=== PATIENT | male | born 1955 | race Caucasian/White ===

== ENCOUNTER 2019-06-04 09:14 | Emergency (ER) | payer OTHER ==
[~2019-06-04] VITALS: Ht 182.9 cm; Wt 95.7 kg
[2019-06-04 09:21] VITALS: BP 156/88
--- NOTE | 2019-06-04 09:21 | NUR ---
BIBA AND PLACED IN BED 08
--- NOTE | 2019-06-04 09:23 | NUR ---
DR GREEN EVALUATING PT AT BEDSIDE
--- NOTE | 2019-06-04 09:30 | NUR ---
PT BIBA FROM [facility]. PT STATES PAIN AT RIGHT-SIDED OCCIPITAL AREA UPON PALPATION, OTHERWISE DENIES PAIN. MOIST COUGH NOTICED UPON TRIAGE. LUNGS ARE CLEAR TO AUSCULTATION. PT IS AT BASELINE PER EMS: GCS 14, AOX3. PT IS DNR (ORIGINAL POLST IS AVAILABLE IN CHART). PATIENT STATES PAIN OF 5/10 ON PALPATION AT THE OCCIPITAL AREA OF THE HEAD AT THIS TIME; VSS; PATIENT POSITIONED FOR COMFORT; HOB ELEVATED; BEDRAILS UP X2; BED DOWN. ER MD MADE AWARE OF PT STATUS.
--- NOTE | 2019-06-04 09:48 | NUR ---
PT IS TAKING TO CT SCAN VIA GURNEY ASSISTED BY PET CARE ASSOCIATE.
[2019-06-04 09:52] LABS: BASOPHILS # (AUTO) 0.1 K/uL (0.00-0.22); BASOPHILS % (AUTO) 1.3 % (0.0-2.0); EOSINOPHILS # (AUTO) 0.4 K/uL (0-0.4); EOSINOPHILS % (AUTO) 3.9 % (0.0-4.0); HEMATOCRIT 44.3 % (36-52); HEMOGLOBIN 14.4 g/dL (12.0-18.0); LYMPHOCYTES % (AUTO) 21.5 % (20.5-51.1); MEAN CORPUSCULAR HEMOGLOBIN 29 pg (27-31); MEAN CORPUSCULAR HGB CONC 33 g/dL (33-37); MEAN CORPUSCULAR VOLUME 88.6 fL (80-94); MONOCYTES # (AUTO) 0.7 K/uL (0.8-1.0); NEUTROPHILS # (AUTO) 6.2 K/uL (1.8-7.7); NEUTROPHILS % (AUTO) 66.3 % (42.2-75.2); PLATELET COUNT (AUTO) 261 K/uL (140-450); WHITE BLOOD COUNT (AUTO) 9.4 K/uL (4.8-10.8)
--- NOTE | 2019-06-04 10:10 | NUR ---
PT IS SLEEPING IN THE BED W/ VSS. PT IS ON MONITOR.
[2019-06-04 10:14] LABS: ANION GAP 10.4 (8-16); CARBON DIOXIDE 27.5 mmol/L (21-32); CREATININE 1.6 mg/dL (0.6-1.3); POTASSIUM 3.9 mmol/L (3.5-5.1)
--- NOTE | 2019-06-04 11:47 | NUR ---
PT HAS BEEN DISCHARGED FROM [facility] ER BY DR. GREEN. TRIED TO CONTACT THE RN IN [facility] [place], LEFT NO ANSWER. WILL TRY TO CALL AGAIN. Addendum: 06/04/19 at 1151 by [employer] PHONE #: [phone]
--- NOTE | 2019-06-04 11:50 | NUR ---
CALLED PHONE #: [phone] OF PT'S CONTACT INFO. LEFT NO ANSWER.
--- NOTE | 2019-06-04 13:02 | NUR ---
PT IS RESTING IN THE BED. VSS. PT IS ON THE MONITOR.
[2019-06-04 13:52] VITALS: BP 122/87
--- NOTE | 2019-06-04 13:52 | NUR ---
Note cainone in EDM - 06/04/19 at 1353 by CLINT Patient to be transferred back to [facility]. Patient belongings inventoried and will be sent with patient. Copy of nursing notes, lab reports, EKG, Physicians Orders and X-rays to be sent with patient. Report called to [] at receiving facility. [facility] ambulance service has been called for transfer. ETA is 30MINS.
--- NOTE | 2019-06-04 13:52 | NUR ---
Note undone in EDM - 06/04/19 at 1352 by [email or web address] Patient to be transferred back to [facility]. Patient belongings inventoried and will be sent with patient. Copy of nursing notes, lab reports, EKG, Physicians Orders and X-rays to be sent with patient. Report called to MIYA Jensen at receiving facility. [facility] ambulance service has been called for transfer. ETA is 30 MINS.
--- NOTE | 2019-06-04 13:52 | NUR ---
Patient to be transferred back to [facility]. Patient belongings inventoried and will be sent with patient. Copy of nursing notes, lab reports, EKG, Physicians Orders and X-rays to be sent with patient. Report called to MIYA NAVARRETE at receiving facility. [facility] ambulance service has been called for transfer. ETA is 30MINS.
== END 2019-06-04 13:52 | disposition home or self-care (01) ==
LOC: MED 09:14
DX: L98.9 Disorder of the skin and subcutaneous tissue, unspecified (principal); Z88.8 Allergy status to other drugs, medicaments and biological substances; W19.XXXA Unspecified fall, initial encounter; Y93.89 Activity, other specified; Y92.89 Other specified places as the place of occurrence of the external cause; Y99.8 Other external cause status
CPT/HCPCS: 36415; 70450; 72125; 80048; 85025; 99285

== ENCOUNTER 2021-01-16 15:11 | Emergency (ER) | payer OTHER ==
[2021-01-16] MEDS ORDERED: PIPERACILLIN/TAZOBACTAM 3.375 GM VIAL IV ONE (16:10)
[2021-01-16] MEDS ORDERED: VANCOMYCIN 1,000 MG VIAL ONE (17:10)
--- NOTE | 2021-01-17 01:00 | NUR ---
REFER TO PAPER CHARTING DURING DOWNTIME FOR PAST NOTES.
[2021-01-17 01:53] LABS: AMYLASE 75 U/L (25-115)
[2021-01-17 01:54] LABS: LIPASE 273 U/L (73-393)
[2021-01-17 01:55] LABS: ALBUMIN 2.8 g/dL (3.4-5.0); ANION GAP 13.8 (8-16); CARBON DIOXIDE 25.2 mmol/L (21-32); CREATININE 1.5 mg/dL (0.6-1.3); TOTAL BILIRUBIN 0.3 mg/dL (0.0-1.0)
[2021-01-17 02:47] LABS: HEMATOCRIT 38.5 % (36-52); HEMOGLOBIN 11.9 g/dL (12.0-18.0); RED BLOOD CELL COUNT(AUTO) 4.79 MIL/uL (4.20-6.10); WHITE BLOOD COUNT (AUTO) 22.7 K/uL (4.8-10.8)
[2021-01-17 02:48] LABS: MEAN CORPUSCULAR HEMOGLOBIN 25 pg (27-31); MEAN CORPUSCULAR HGB CONC 31 g/dL (33-37); MEAN CORPUSCULAR VOLUME 80.4 fL (80-94); PLATELET COUNT (AUTO) 387 K/uL (140-450)
[2021-01-17 02:49] LABS: LYMPHOCYTES % (MANUAL) 16 % (20-46); MONOCYTES % (MANUAL) 1 % (5-12)
[2021-01-17 02:53] LABS: APPEARANCE,URINE CLOUDY (CLEAR); BLOOD, URINE 1+ (NEGATIVE); COLOR,URINE YELLOW (YELLOW); UGLUCOSE NEGATIVE (NEGATIVE)
[2021-01-17 02:54] LABS: BILIRUBIN,URINE NEGATIVE (NEGATIVE); LEUKOCYTE ESTERASE ,URINE 1+ (NEGATIVE); NITRITE, URINE POSITIVE (NEGATIVE)
[2021-01-17 02:55] LABS: RBC,URINE 0-5 /HPF (0-5); WBC,URINE 80-100 /HPF (0-5)
--- NOTE | 2021-01-17 05:50 | NUR ---
CALLED [facility] MIYA MORALES FOR REPORT. ETA FOR P/U [id number]
--- NOTE | 2021-01-17 05:51 | NUR ---
[facility] TRANSPORT AT BEDSIDE
[2021-01-17 06:00] VITALS: BP 138/73
--- NOTE | 2021-01-17 06:20 | NUR ---
PT TRANSPORTED TO [facility] AT THIS TIME IN STABLE CONDITION.
--- NOTE | 2021-01-17 06:20 | NUR ---
PT TAKEN BY [facility] TRANSPORT TO [facility]
== END 2021-01-17 06:20 | disposition short-term general hospital (02) ==
LOC: MED 15:11
DX: R00.0 Tachycardia, unspecified (principal); R50.9 Fever, unspecified
CPT/HCPCS: 36415; 71045; 80053; 81001; 82150; 83605; 83690; 83880; 84484; 85025; 85379; 87040; 87086; 99284; J2543; J3370; Q0092

== ENCOUNTER 2022-06-26 13:02 | Emergency (ER) | payer OTHER ==
[~2022-06-26] VITALS: Ht 175.3 cm; Wt 79.4 kg
[2022-06-26 13:13] VITALS: BP 144/79
--- NOTE | 2022-06-26 13:30 | NUR ---
PT BIB BLS RUN FROM [facility] C/C UNWITNESSED FALL YESTERDAY. GCS 14 BASELINE FOR PT. NAD. NO TRAUMA NOTED.
--- NOTE | 2022-06-26 17:57 | NUR ---
REPORT GIVEN TO KURT HOLLIDAY AT [facility] FOR CONTINUATION OF CARE
[2022-06-26 17:58] VITALS: BP 137/70
--- NOTE | 2022-06-26 18:39 | NUR ---
Patient discharged with v/s stable. Written and verbal after care instructions ABOUT FALL PREVENTION AT HOME given and explained. Patient verbalized understanding. Ambulance Transport with to care home. All questions addressed prior to discharge. Advised to follow up with PMD.
== END 2022-06-26 18:39 | disposition home or self-care (01) ==
LOC: MED 13:02
DX: S09.90XA Unspecified injury of head, initial encounter (principal); I10 Essential (primary) hypertension; N18.9 Chronic kidney disease, unspecified; Z79.1 Long term (current) use of non-steroidal anti-inflammatories (NSAID); Z79.899 Other long term (current) drug therapy; W18.30XA Fall on same level, unspecified, initial encounter; Y93.89 Activity, other specified; Y92.89 Other specified places as the place of occurrence of the external cause; Y99.8 Other external cause status
CPT/HCPCS: 70450; 72125; 99284